=== PATIENT | male | born 1940 | race Caucasian/White ===

== ENCOUNTER 2025-06-19 14:29 | Emergency (ER) | payer OTHER ==
[~2025-06-19] VITALS: Ht 170.2 cm; Wt 79.4 kg
[~2025-06-19 14:29] MED LIST: "\\\"BP MED\\\""; ACET500C4 PO; ASPI-807 PO
[2025-06-19] MEDS: IV NS 0.9% 500 ML BAG IV ONE (15:55)
[2025-06-19 16:30] LABS: PLATELET COUNT (AUTO) 182 K/uL (150-450); RED BLOOD CELL COUNT(AUTO) 4.49 MIL/uL (4.5-6.0); RED CELL DISTRIBUTION WIDTH 14.4 % (11.5-15.0); WHITE BLOOD COUNT (AUTO) 7.6 K/uL (4.3-11.0)
[2025-06-19 16:47] LABS: CALCIUM, SERUM 9.3 mg/dL (8.5-10.1); CREATININE 1.2 mg/dL (0.6-1.3); SODIUM SERUM 139 mmol/L (136-145); UREA NITROGEN, BLOOD 20 mg/dL (7-18)
[2025-06-19 16:51] LABS: ASPARTATE AMINOTRANSFERASE 25 U/L (15-37); TOTAL PROTEIN, SERUM 7.3 g/dL (6.4-8.2)
[2025-06-19 17:06] LABS: APPEARANCE,URINE CLEAR (CLEAR); BLOOD, URINE Negative Ery/uL (NEGATIVE); LEUKOCYTE ESTERASE ,URINE Negative (NEGATIVE); UGLUCOSE Negative (NEGATIVE)
[2025-06-19 17:08] LABS: NITRITE, URINE NEGATIVE (NEGATIVE)
[2025-06-19] MEDS ORDERED: ADENOSINE 6 MG/2 ML VIAL ONE (17:59)
[2025-06-19 19:00] VITALS: BP 136/78; TEMP 98.3; O2SAT 97
== END 2025-06-19 19:00 | disposition home or self-care (01) ==
LOC: ER 14:50
DX: K59.00 Constipation, unspecified (principal); R10.30 Lower abdominal pain, unspecified; E78.5 Hyperlipidemia, unspecified; I10 Essential (primary) hypertension; N40.0 Benign prostatic hyperplasia without lower urinary tract symptoms; M19.90 Unspecified osteoarthritis, unspecified site; Z79.82 Long term (current) use of aspirin; Z86.79 Personal history of other diseases of the circulatory system
CPT/HCPCS: 99285; 74176; 71045; 93005; 85025; 80048; 83690; 80076; 81003; 36415; J7030; J7040; J0153